=== PATIENT | female | born 1980 | race Two or more races ===

== ENCOUNTER 2022-12-30 10:37 | Outpatient (CLI) | payer OTHER ==
[~2022-12-30 10:37] MED LIST: FERRO-PLEX PO; HIGH POTENCY I134 MG PO; OVRAL PO; SYNTHROID75 MCG PO; Synthroid PO; TYLENOL-CODEINE1 TAB PO; [UNRECOGNIZED DRUG - OTHER] PO
== END 2022-12-30 10:52 | disposition home or self-care (01) ==
LOC: MRI 10:37
PROVIDERS: ATTEND Orthopaedic Surgery
DX: M51.26 Other intervertebral disc displacement, lumbar region (principal)
CPT/HCPCS: 72148

== ENCOUNTER 2024-03-02 13:55 | Outpatient (CLI) | payer OTHER | END 2024-03-02 14:21 | disposition home or self-care (01) | LOC: MRI 13:55 | PROVIDERS: ATTEND Orthopaedic Surgery Orthopaedic Surgery of the Spine | DX: M51.36 Other intervertebral disc degeneration, lumbar region (principal); M51.37 Other intervertebral disc degeneration, lumbosacral region; M54.51 Vertebrogenic low back pain; M25.551 Pain in right hip; M25.552 Pain in left hip; S93.04XA Dislocation of right ankle joint, initial encounter | CPT/HCPCS: 72148 ==